=== PATIENT | female | born 1940 | race Caucasian/White ===

== ENCOUNTER 2017-01-14 06:01 | Day surgery (SDC) | payer MEDICARE ==
[2017-01-14] MEDS ORDERED: LACTATED RINGERS 1,000 ML ONE (06:10)
[2017-01-14] MEDS ORDERED: IV START KIT ONE (06:10)
[2017-01-14] MEDS ORDERED: FENTANYL 100 MCG/2 ML VIAL ONE (06:50)
[2017-01-14] MEDS ORDERED: FENTANYL 250 MCG/5 ML AMP IV PRN (07:04)
[2017-01-14] MEDS ORDERED: MIDAZOLAM HCL 5 MG/5 ML VIAL IV PRN (07:04)
[2017-01-14] MEDS ORDERED: LACTATED RINGERS 1,000 ML IV SCH (07:15)
[2017-01-14] MEDS ORDERED: PROPOFOL 40 ML IV ONE (08:24)
--- NOTE | 2017-01-16 11:33 | SURGPATH ---
[facility] [address] [place] [id number] Patient Name: BRUNO NEWMAN MR#: [id number] : 1940 Gender: F Specimen #: [id number] Collected: 01/14/2017 Received: 01/15/2017 Reported: 01/16/2017 Submitting Phys: SELVIN GUTIERREZ Copy To Phys: [facility] Clinical History / Pre-Operative Diagnosis: Screening, history of polypectomy Specimen Source / Surgical Procedure Performed: #1 ascending colon polyp x1, #2 ascending colon polyp x1, #3 cecal polyp x2 Interpretation: 1. ASCENDING COLON POLYP #1: - TUBULAR ADENOMA. 2. ASCENDING COLON POLYP #2: - TUBULAR ADENOMA. 3. CECAL POLYP X2: - TUBULAR ADENOMA FRAGMENTS. Electronically Signed Out Yue Belle M.D. Gross Description: 1. The specimen is received in formalin labeled with the patient's name and "#1 ascending colon polyp". The specimen consists of two fragments of mcintosh soft tissue, 0.6 x 0.4 x 0.2 cm in aggregate. Submitted in toto in one cassette. 2. The specimen is received in formalin labeled with the patient's name and "#2 ascending colon polyp". The specimen consists of three fragments of mcintosh soft tissue, 0.6 x 0.3 x 0.2 cm in aggregate. Submitted in toto in one cassette 3. The specimen is received in formalin labeled with the patient's name and "cecal polyp x2". The specimen consists of five fragments of mcintosh soft tissue, 0.8 x 0.7 x 0.3 cm in aggregate. Submitted entirely in one cassette KARLA Chau Microscopic Description: 1.-3. Sections of the ascending colon polyps and cecal polyp are similar, showing adenomatous mucosal changes without evidence of high-grade dysplasia or invasive carcinoma. 1: 35276 2: 45616 3: 64269 D12.2 D12.0
== END 2017-01-14 08:40 | disposition home or self-care (01) ==
LOC: SDC 06:01
PROVIDERS: ATTEND Family Medicine
PROC: 0DBK8ZX Excision of Ascending Colon, Via Natural or Artificial Opening Endoscopic, Diagnostic (ICD-10-PCS; principal; 2017-01-14)
PROC: 0DBH8ZX Excision of Cecum, Via Natural or Artificial Opening Endoscopic, Diagnostic (ICD-10-PCS; 2017-01-14)
DX: Z12.11 Encounter for screening for malignant neoplasm of colon (principal); D12.0 Benign neoplasm of cecum; D12.2 Benign neoplasm of ascending colon; K57.30 Diverticulosis of large intestine without perforation or abscess without bleeding; Z86.010 Personal history of colon polyps; Z80.0 Family history of malignant neoplasm of digestive organs; K21.9 Gastro-esophageal reflux disease without esophagitis; E78.5 Hyperlipidemia, unspecified; N18.3 Chronic kidney disease, stage 3 (moderate); Z85.828 Personal history of other malignant neoplasm of skin; D64.9 Anemia, unspecified; I12.9 Hypertensive chronic kidney disease with stage 1 through stage 4 chronic kidney disease, or unspecified chronic kidney disease; M81.0 Age-related osteoporosis without current pathological fracture; E78.00 Pure hypercholesterolemia, unspecified; Z86.711 Personal history of pulmonary embolism; M1A.9XX0 Chronic gout, unspecified, without tophus (tophi); Z88.8 Allergy status to other drugs, medicaments and biological substances; Z91.040 Latex allergy status; F43.23 Adjustment disorder with mixed anxiety and depressed mood